=== PATIENT | female | born 1965 | race Asian ===

== ENCOUNTER 2017-06-30 11:42 | Emergency (ER) | payer MEDICARE ==
[~2017-06-30] VITALS: Ht 157.5 cm; Wt 56.7 kg
[~2017-06-30 11:42] MED LIST: AMIT-106 PO; CARI250T10 PO; CITA-157 PO; CLON0.5T66 PO; DULO20CA3; ELET20TA2 PO; FLUO-201 PO; LISI-362 PO; METO25TA93 PO; ONAB100V4 IJ; OXYC-865 PO; PREG100C44 PO; PROC10TA4 PO; TOP100 PO; TOPI50CA5; TRA50 PO; ZOLP-358 PO; [UNRECOGNIZED DRUG - CODE]
[2017-06-30] MEDS ORDERED: METOCLOPRAMIDE 10 MG/2 ML SDV IVP ONE (12:05)
[2017-06-30] MEDS ORDERED: diphenhydrAMINE 50 MG/ML VIAL IVP ONE (12:05)
[2017-06-30] MEDS ORDERED: KETOROLAC 15 MG/ML VIAL IVP ONE (12:05)
[2017-06-30] MEDS ORDERED: NS(*) 0.9% 1000 ML BAG 1,000 ML IV ONE (12:05)
--- NOTE | 2017-06-30 12:10 | ER Report ---
History and Physical Time Seen By MD: 11:50 Hx. of Stated Complaint: PRESENTS WITH MIGRAINE FOR 1 WEEK INTERMITTANTLY. STATES WHE WENT OFF HER DULOXETINE, WAS SUPPOSED TO TAPER, BUT SHE JUST QUIT TAKING IT HPI/ROS CHIEF COMPLAINT: Headache, nausea HISTORY OF PRESENT ILLNESS: Patient is a 51-year-old female who presents the ED with complaint of a 70 worsening headache and nausea. She states that she has having issues with chronic depression as well. She states that she was told to taper off her Duloxetine 3 days ago and then started different and to present that she is uncertain of the name. She states that instead of tapering she decided just to discontinue the duloxetine. She states that shots she has done this she has had some worsening headache and nausea. She states she has chronic headaches. She states that she has had a headache constantly since the age of 21. She states that her headache is located in the bilateral frontal areas. Patient states that she feels little bit dehydrated and has been nauseated. She denies any vomiting or diarrhea. She had not noted abdominal pain, chest pain, shortness of breath. She denies any suicidal or homicidal ideation. She states that she did schedule an appointment with her psychologist as well as her primary care provider who is Lubna Wheatley NP. She has no neck pain or fever. REVIEW OF SYSTEMS: Constitutional: No fever, no chills. Eyes: No discharge. ENT: No sore throat. Cardiovascular: No chest pain, no palpitations. Respiratory: No cough, no shortness of breath. Gastrointestinal: No abdominal pain, no vomiting. Genitourinary: No hematuria. Musculoskeletal: No back pain. Skin: No rashes. Neurological: See history of present illness. Allergies: Coded Allergies: No Known Drug Allergies (Verified , 06/30/17) Home Meds Reported Medications Quetiapine Fumarate (Quetiapine Fumarate ER) 200 Mg Tab.er.24h, HS 04/08/17 Duloxetine HCl (Duloxetine HCl) 20 Mg Capsule.dr, BID 04/08/17 Metoprolol Tartrate (METOPROLOL TARTRATE) 25 Mg Tablet, 2 TAB PO BID, TAB 11/27/16 Reviewed Nurses Notes: Yes Old Medical Records Reviewed: Yes Hx Smoking: No Smoking Status: Never Smoker Hx Substance Use Disorder: No Hx Alcohol Use: No Constitutional Vital Sign - Last 24 Hours 06/30/17 11:48 Temp 98.2 Pulse 107 Resp 24 B/P (MAP) 121/89 Pulse Ox 99 O2 Delivery Room Air Physical Exam General Appearance: The patient is alert, has no immediate need for airway protection and no signs of toxicity. Patient appears to be in some mild distress. Eyes: Pupils equal and round no pallor or injection. EOMs are full bilaterally. ENT, Mouth: Mucous membranes are moist. Respiratory: There are no retractions, lungs are clear to auscultation. Cardiovascular: Regular rate and rhythm. Gastrointestinal: Abdomen is soft and non tender, no masses, bowel sounds normal. Neurological: Cranial Nerves II-12 intact. Skin: Warm and dry, no rashes. Musculoskeletal: Neck is supple non tender. Extremities are nontender, nonswollen and have full range of motion. DIFFERENTIAL DIAGNOSIS: After history and physical exam differential diagnosis was considered for headache including but not limited to subarachnoid hemorrhage , migraine headache, tension headache and infectious causes such as meningitis, pharyngitis and sinusitis. Medical Decision Making ED Course/Re-evaluation Clinical Indication for ER IV: Hydration ED Course Patient will be given 1 L normal saline bolus, 15 mg IV ketorolac, 10 mg IV metoclopramide, 50 mg IV Benadryl to help with headache. 06/30/2017 1:04:50 pm - patient is feeling slightly improved. She states that she is still has some mild nausea. She has not had any vomiting here. 06/30/2017 1:31:45 pm - patient continues to have no emesis but does have some slight nausea. She states she is still having headache but she states that shows has a headache. She is asking for stronger pain medication such as Dilaudid discussed this was not appropriate for her headache. She states that she just got home and rest. Visor follow-up with primary care provider regarding symptoms and her depression medication. Decision to Disposition Date: Jun 30, 2017 Decision to Disposition Time: 13:32 Depart Departure Latest Vital Signs Vital Signs Date Time Temp Pulse Resp B/P (MAP) Pulse Ox O2 Delivery O2 Flow Rate FiO2 06/30/17 11:48 98.2 107 24 121/89 99 Room Air Impression: Primary Impression: Headache Additional Impression: Nausea Condition: Improved Disposition: HOME OR SELF-CARE Referrals: CICI ROSENTHAL DO (PCP) New Scripts Ondansetron (ZOFRAN ODT) 4 Mg Tab.rapdis 4 MG PO Q6H Y for NAUSEA/VOMITING, #12 TAB.ANGELINA Prov: DAVE DELA CRUZ PA-C 06/30/17 Patient Instructions: Acute Headache (ED), Acute Nausea and Vomiting (ED) Additional Instructions: Stay well-hydrated. Follow-up with primary care provider in 1-2 days. If having any worsening or concerning symptoms may return to the emergency department. Problem Qualifiers Primary Impression: Headache Headache type: unspecified Headache chronicity pattern: chronic headache Intractability: not intractable Qualified Codes: R51 - Headache DAVE DELA CRUZ PA-C Jun 30, 2017 12:10
[2017-06-30] MEDS ORDERED: ONDA4TAB PO (13:34)
[2017-06-30] MEDS ORDERED: ONDANSETRON 4 MG/2 ML VIAL IVP ONE (13:45)
[2017-06-30 13:51] LABS: PLATELET COUNT, AUTOMATED 262 K/uL (150-450)
[2017-06-30 14:48] VITALS: BP 104/82
== END 2017-06-30 14:50 | disposition home or self-care (01) ==
LOC: ER 11:52
DX: R51 Headache (principal); R11.0 Nausea
CPT/HCPCS: 80305; 81025; 83690; 83735; 84443; 85025; 96361; 96374; 96375; 99284; G0480; J1200; J1885; J2405; J2765; J7030; 80320; 80329; 82040; 82247; 82310; 82374; 82435; 82565; 82947; 84075; 84132; 84155; 84295; 84450; 84460; 84520